=== PATIENT | male | born 1960 | race Caucasian/White ===

== ENCOUNTER 2021-03-04 07:26 | Inpatient (IN) | payer BC, OTHER ==
[~2021-03-04] VITALS: Ht 190.5 cm; Wt 123.6 kg
[2021-03-04] MEDS ORDERED: aspirin 81mg tab.chew PO ONE (07:55)
[2021-03-04 08:31] LABS: ALANINE AMINOTRANSFERASE 46 U/L (12-78); ALBUMIN 3.3 G/DL (3.4-5.0); ALBUMIN/GLOBULIN RATIO 0.9 (1.1-1.5); ALKALINE PHOSPHATASE 101 IU/L (46-116); ANION GAP 8 (8-16); ASPARTATE AMINO TRANSFERASE 19 U/L (10-37); BILIRUBIN,TOTAL 0.8 MG/DL (0.1-1.0); BLOOD UREA NITROGEN 19 MG/DL (7-18); BUN/CREATININE RATIO 20.2 (5.4-32.0); CALCIUM 8.8 MG/DL (8.5-10.1); CHLORIDE 103 MMOL/L (99-107); CREATININE 0.94 MG/DL (0.60-1.10); GLUCOSE 278 MG/DL (70-104); POTASSIUM 4.5 MMOL/L (3.5-5.1); SODIUM 137 MMOL/L (135-145); TOTAL CARBON DIOXIDE 25.9 MMOL/L (24-32); eGFR 81 ML/MIN
[2021-03-04 08:45] LABS: MAGNESIUM 1.7 MG/DL (1.5-2.4)
[2021-03-04] MEDS ORDERED: aspirin 325mg tablet PO ONE (08:55)
[2021-03-04] MEDS ORDERED: furosemide 10 MG/1 ML 10ml inj IV ONE (09:15)
[2021-03-04] MEDS ORDERED: hydrALAZINE 20mg/ml inj. IV ONE (09:15)
[2021-03-04 10:39] LABS: BASOPHILS # (AUTO) 0.1 X10'3 (0-0.2); BASOPHILS % (AUTO) 0.9 % (0-1); EOSINOPHILS # (AUTO) 0.2 X10'3 (0-0.9); EOSINOPHILS % (AUTO) 1.6 % (0-6); LYMPHOCYTES # (AUTO) 1.6 X10'3 (1.1-4.8); LYMPHOCYTES % (AUTO) 16.8 % (21-51); MEAN PLATELET VOLUME 8.5 FL (7.4-10.4); MONOCYTES # (AUTO) 0.6 X10'3 (0-0.9); MONOCYTES % (AUTO) 6.5 % (2-12); NEUTROPHILS # (AUTO) 7.2 X10'3 (1.8-7.7); NEUTROPHILS % (AUTO) 74.2 % (42-75); PLATELET COUNT 267 X10'3 (140-440); WHITE BLOOD COUNT 9.7 X10'3 (4.5-11.0)
[2021-03-04 10:40] LABS: HEMATOCRIT 41.4 % (42.0-52.0); HEMOGLOBIN 13.2 g/dl (14.0-17.9); MEAN CORPUSCULAR HEMOGLOBIN 20.2 PG (27.0-31.0); MEAN CORPUSCULAR HGB CONC 31.9 g/dL (33.0-36.5); MEAN CORPUSCULAR VOLUME 63.3 FL (78-98); RED BLOOD COUNT 6.54 X10'6 (4.70-6.10); RED CELL DISTRIBUTION WIDTH 19.5 % (11.5-14.5)
[2021-03-04 10:56] LABS: ANISOCYTOSIS 3+; PLATELET ESTIMATE NORMAL
[2021-03-04 10:57] LABS: ELLIPTOCYTES 1+; MICROCYTOSIS 1+
[2021-03-04 10:59] LABS: LARGE PLATELETS MODERATE
[2021-03-04 11:00] LABS: POLYCHROMASIA 2+; TEAR DROP CELLS 1+
[2021-03-04] MEDS ORDERED: METF-438 PO (11:08)
[2021-03-04] MEDS ORDERED: AMLO10TA13 PO (11:08)
[2021-03-04] MEDS ORDERED: RISA150P SQ (11:08)
[2021-03-04] MEDS ORDERED: FENO160T PO (11:08)
[2021-03-04] MEDS ORDERED: ICOS1CAP PO (11:08)
[2021-03-04] MEDS ORDERED: EMPA25TA PO (11:08)
[2021-03-04 11:12] LABS: SPHEROCYTES FEW
[2021-03-04] MEDS ORDERED: magnesium Cl slow-release 64mg tablet PO PRN (12:55)
[2021-03-04] MEDS ORDERED: magnesium 4gm in 100ml NS 100 ML IV PRN (12:55)
[2021-03-04] MEDS ORDERED: morphine 2 MG/ML inj. syringe IV PRN ×2 (12:55)
[2021-03-04] MEDS ORDERED: potassium CL 10mEq/100ml bag 100 ML IV PRN (12:55)
[2021-03-04] MEDS ORDERED: potassium Cl 20 mEq SR tablet PO PRN ×2 (12:55)
[2021-03-04] MEDS ORDERED: magnesium hydroxide 30ml (MOM) UD suspension PO PRN (12:55)
[2021-03-04] MEDS ORDERED: mag hydrox/Alum hydrox/simeth 30ml oral suspension PO PRN (12:55)
[2021-03-04] MEDS ORDERED: ondansetron/PF 4mg/2ml inj IV PRN (12:55)
[2021-03-04] MEDS ORDERED: magnesium 2GM in 50ml NS 50 ML IV PRN (12:55)
[2021-03-04 14:17] LABS: MAGNESIUM 1.8 MG/DL (1.5-2.4); POTASSIUM 3.8 MMOL/L (3.5-5.1)
[2021-03-04] MEDS ORDERED: metoprolol tartrate 1mg/ml inj IV PRN (14:35)
[2021-03-04] MEDS ORDERED: nitroGLYCERIN 0.4mg SUBLingual tab SL PRN (14:35)
[2021-03-04] MEDS ORDERED: aminophylline 250mg/10ml inj. IV PRN (14:35)
[2021-03-04] MEDS ORDERED: regadenoson 0.4mg/5ml syringe IV ONE (14:35)
[2021-03-04] MEDS: acetaminophen 325mg tablet PO PRN (18:57)
--- NOTE | 2021-03-04 18:57 | NUR ---
Patient sitting up in chair and reports it helps his breathing. He complains of headache and tylenol is provided. Call alvarado given, lights dimmed, and glass sliders closed to help with noise. He is updated on POC.
[2021-03-04] MEDS: K and/or MAG REPLACEMENT MC SCH (20:00)
[2021-03-04] MEDS ORDERED: ibuprofen 200mg tablet PO ONE (20:00)
[2021-03-04] MEDS: docusate sod 100mg capsule PO SCH (20:15)
[2021-03-04] MEDS: furosemide 40mg/4ml inj IV SCH (20:15)
[2021-03-04 22:00] VITALS: BP 166/111
[2021-03-05] VITALS (12 sets, daily range): BP systolic 124–172; BP diastolic 71–110
--- NOTE | 2021-03-05 06:43 | NUR ---
Problems reprioritized. Patient report given, questions answered & plan of care reviewed with QUAN Villanueva.
[2021-03-05 06:57] LABS: BASOPHILS # (AUTO) 0.1 X10'3 (0-0.2); BASOPHILS % (AUTO) 0.7 % (0-1); EOSINOPHILS # (AUTO) 0.2 X10'3 (0-0.9); EOSINOPHILS % (AUTO) 1.8 % (0-6); LYMPHOCYTES # (AUTO) 1.5 X10'3 (1.1-4.8); LYMPHOCYTES % (AUTO) 17.5 % (21-51); MEAN PLATELET VOLUME 8.6 FL (7.4-10.4); MONOCYTES # (AUTO) 0.5 X10'3 (0-0.9); MONOCYTES % (AUTO) 5.4 % (2-12); NEUTROPHILS # (AUTO) 6.4 X10'3 (1.8-7.7); NEUTROPHILS % (AUTO) 74.6 % (42-75); PLATELET COUNT 241 X10'3 (140-440); RED BLOOD COUNT 6.38 X10'6 (4.70-6.10); RED CELL DISTRIBUTION WIDTH 19.5 % (11.5-14.5); WHITE BLOOD COUNT 8.6 X10'3 (4.5-11.0)
[2021-03-05 07:17] LABS: HEMATOCRIT 40.2 % (42.0-52.0); HEMOGLOBIN 12.8 g/dl (14.0-17.9); MEAN CORPUSCULAR HEMOGLOBIN 20.2 PG (27.0-31.0); MEAN CORPUSCULAR HGB CONC 31.9 g/dL (33.0-36.5); MEAN CORPUSCULAR VOLUME 63.4 FL (78-98)
[2021-03-05 07:29] LABS: ALBUMIN 3.1 G/DL (3.4-5.0); ANION GAP 8 (8-16); BLOOD UREA NITROGEN 24 MG/DL (7-18); BUN/CREATININE RATIO 24.2 (5.4-32.0); CALCIUM 8.2 MG/DL (8.5-10.1); CHLORIDE 103 MMOL/L (99-107); CREATININE 0.99 MG/DL (0.60-1.10); GLUCOSE 234 MG/DL (70-104); MAGNESIUM 1.9 MG/DL (1.5-2.4); POTASSIUM 4.2 MMOL/L (3.5-5.1); SODIUM 139 MMOL/L (135-145); TOTAL CARBON DIOXIDE 28.2 MMOL/L (24-32); eGFR 76 ML/MIN
[2021-03-05] MEDS: furosemide 40mg/4ml inj IV SCH ×2 (07:37→20:54)
[2021-03-05 07:48] LABS: ANISOCYTOSIS 2+; MICROCYTOSIS 2+; PLATELET ESTIMATE NORMAL; POLYCHROMASIA FEW
[2021-03-05 07:49] LABS: ELLIPTOCYTES FEW; LARGE PLATELETS MODERATE
[2021-03-05] MEDS: K and/or MAG REPLACEMENT MC SCH ×2 (08:00→20:00)
[2021-03-05] MEDS: docusate sod 100mg capsule PO SCH ×2 (08:00→20:54)
[2021-03-05] MEDS: enoxaparin 40mg/0.4ml syringe SUBCUT SCH (08:00)
[2021-03-05] MEDS ORDERED: regadenoson 0.4mg/5ml syringe IV ONE (09:10)
--- NOTE | 2021-03-05 12:00 | NUR ---
Dr. Allan states okay for patient to eat
[2021-03-05] MEDS ORDERED: dextrose ORAL solution 15 GM/59 ML bottle PO PRN ×2 (13:40)
[2021-03-05] MEDS ORDERED: glucagon, human recombinant 1mg kit SUBCUT PRN (13:40)
[2021-03-05] MEDS ORDERED: dextrose 50%-water 50ml dispensing syringe IV PRN ×2 (13:40)
[2021-03-05] MEDS: amLODIPine 5mg tablet PO SCH (13:59)
[2021-03-05] MEDS: fenofibrate 145mg tablet PO SCH (14:02)
[2021-03-05] MEDS: insulin Lispro (HumaLOG) vial - multi-dose SQ SCH (14:06)
--- NOTE | 2021-03-05 18:16 | NUR ---
Problems reprioritized. Patient report given, questions answered & plan of care reviewed with Iris GLASS.
[2021-03-05] MEDS: ICOSAPENT ETHYL 1 GM PO SCH (20:00)
[2021-03-05] MEDS ORDERED: insulin glargine (Lantus) pen - multi-dose SQ SCH (21:00)
[2021-03-05] MEDS: acetaminophen 325mg tablet PO PRN (21:48)
[2021-03-06 02:00] VITALS: BP 136/79
[2021-03-06 06:00] VITALS: BP 148/82
--- NOTE | 2021-03-06 06:40 | NUR ---
Problems reprioritized. Patient report given, questions answered & plan of care reviewed with Gabriela GLASS .
--- NOTE | 2021-03-06 06:51 | NUR ---
Patient in room PCU 3015. I have received report from Areli GLASS and had the opportunity to ask questions and assume patient care. Pt. safe and stable at time of change of shift.
[2021-03-06 07:44] LABS: BASOPHILS # (AUTO) 0.1 X10'3 (0-0.2); BASOPHILS % (AUTO) 0.9 % (0-1); EOSINOPHILS # (AUTO) 0.2 X10'3 (0-0.9); EOSINOPHILS % (AUTO) 1.9 % (0-6); LYMPHOCYTES # (AUTO) 1.8 X10'3 (1.1-4.8); LYMPHOCYTES % (AUTO) 21.1 % (21-51); MEAN PLATELET VOLUME 8.5 FL (7.4-10.4); MONOCYTES # (AUTO) 0.6 X10'3 (0-0.9); MONOCYTES % (AUTO) 6.6 % (2-12); NEUTROPHILS # (AUTO) 5.9 X10'3 (1.8-7.7); NEUTROPHILS % (AUTO) 69.5 % (42-75); PLATELET COUNT 242 X10'3 (140-440); RED BLOOD COUNT 6.42 X10'6 (4.70-6.10); RED CELL DISTRIBUTION WIDTH 19.7 % (11.5-14.5); WHITE BLOOD COUNT 8.5 X10'3 (4.5-11.0)
[2021-03-06 07:55] LABS: ANION GAP 6 (8-16); BLOOD UREA NITROGEN 19 MG/DL (7-18); BUN/CREATININE RATIO 20.9 (5.4-32.0); CHLORIDE 104 MMOL/L (99-107); CREATININE 0.91 MG/DL (0.60-1.10); GLUCOSE 171 MG/DL (70-104); POTASSIUM 3.9 MMOL/L (3.5-5.1); SODIUM 139 MMOL/L (135-145); TOTAL CARBON DIOXIDE 28.7 MMOL/L (24-32); eGFR 84 ML/MIN
[2021-03-06] MEDS: ICOSAPENT ETHYL 1 GM PO SCH (08:00)
[2021-03-06] MEDS: K and/or MAG REPLACEMENT MC SCH (08:00)
[2021-03-06 08:27] LABS: HEMATOCRIT 41.1 % (42.0-52.0); HEMOGLOBIN 13.3 g/dl (14.0-17.9); MEAN CORPUSCULAR HEMOGLOBIN 20.3 PG (27.0-31.0); MEAN CORPUSCULAR HGB CONC 32.1 g/dL (33.0-36.5); MEAN CORPUSCULAR VOLUME 63.1 FL (78-98)
[2021-03-06] MEDS: amLODIPine 5mg tablet PO SCH ×2 (08:35→08:38)
[2021-03-06] MEDS: fenofibrate 145mg tablet PO SCH (08:36)
[2021-03-06 08:38] VITALS: BP_SYST 125
[2021-03-06] MEDS: enoxaparin 40mg/0.4ml syringe SUBCUT SCH (08:38)
[2021-03-06] MEDS: furosemide 40mg/4ml inj IV SCH (08:39)
[2021-03-06] MEDS: docusate sod 100mg capsule PO SCH (08:39)
[2021-03-06] MEDS: insulin Lispro (HumaLOG) vial - multi-dose SQ SCH (08:52)
--- NOTE | 2021-03-06 08:56 | NUR ---
Home medications Pt. informed we do not carry his home dose of jardiance and vascepa and for someone to bring his dose in. Latasha U
[2021-03-06 09:49] LABS: ANISOCYTOSIS 2+; MICROCYTOSIS 2+; PLATELET ESTIMATE NORMAL
[2021-03-06 09:50] LABS: GIANT PLATELET FEW
[2021-03-06] MEDS ORDERED: LISI5TAB22 PO (10:49)
[2021-03-06] MEDS ORDERED: ASPI81TA52 PO (10:49)
[2021-03-06] MEDS ORDERED: METO-395 PO (10:49)
[2021-03-06] MEDS ORDERED: FURO40TA4 PO (10:49)
[2021-03-06] MEDS ORDERED: ATOR20TA PO (10:49)
[2021-03-06] MEDS ORDERED: POTA-207 PO (10:49)
--- NOTE | 2021-03-06 11:29 | NUR ---
Discharge Per Dr. Allan, pt. ready for discharge; Pt. received discharge instructions with no further questions; Pt. IV removed with catheter intact; Pt. tele box cleaned and returned to [facility]
[2021-05-31] MEDS ORDERED: [UNRECOGNIZED DRUG - OTHER] SQ SCH (08:00)
== END 2021-03-06 11:32 | disposition home or self-care (01) | DRG 291 ==
LOC: ER 07:27 → ED HOLD 12:56 → PCU 3S 21:45
PROVIDERS: ADMIT Family Medicine; ATTEND Family Medicine
PROC: 4A02XM4 Measurement of Cardiac Total Activity, External Approach (ICD-10-PCS; principal; 2021-03-05)
PROC: 3E073KZ Introduction of Other Diagnostic Substance into Coronary Artery, Percutaneous Approach (ICD-10-PCS; 2021-03-05)
DX: I11.0 Hypertensive heart disease with heart failure (principal); I50.33 Acute on chronic diastolic (congestive) heart failure; E11.9 Type 2 diabetes mellitus without complications; E78.5 Hyperlipidemia, unspecified; Z20.822 Contact with and (suspected) exposure to COVID-19; I08.1 Rheumatic disorders of both mitral and tricuspid valves; I25.5 Ischemic cardiomyopathy; I25.118 Atherosclerotic heart disease of native coronary artery with other forms of angina pectoris; I25.2 Old myocardial infarction; Z95.1 Presence of aortocoronary bypass graft; Z95.5 Presence of coronary angioplasty implant and graft
CPT/HCPCS: 36415; 71045; 78452; 80048; 80053; 82948; 83735; 83880; 84132; 84145; 84484; 85008; 85025; 87081; 87635; 93005; 93017; 93306; 99285; A9500; C9803; G0378; J0360; J1650; J1815; J1940

== ENCOUNTER 2021-06-12 12:38 | Outpatient (CLI) | payer BC ==
[~2021-06-12 12:38] MED LIST: ATOR20TA PO; EMPA25TA PO; FENO160T PO; ICOS1CAP PO; LISI5TAB22 PO; METF-438 PO; METO-395 PO; RISA150P SQ
== END 2021-06-12 23:59 | disposition home or self-care (01) ==
LOC: CARD DIAG 12:38
PROVIDERS: ATTEND Internal Medicine Interventional Cardiology
DX: I08.8 Other rheumatic multiple valve diseases (principal); I25.10 Atherosclerotic heart disease of native coronary artery without angina pectoris; I50.22 Chronic systolic (congestive) heart failure; I10 Essential (primary) hypertension; E78.5 Hyperlipidemia, unspecified
CPT/HCPCS: 93306

== ENCOUNTER 2021-06-12 12:46 | Outpatient (CLI) | payer BC ==
[2021-06-12 14:21] LABS: BASOPHILS # (AUTO) 0.1 X10'3 (0-0.2); BASOPHILS % (AUTO) 1.2 % (0-1); EOSINOPHILS # (AUTO) 0.2 X10'3 (0-0.9); LYMPHOCYTES # (AUTO) 1.9 X10'3 (1.1-4.8); LYMPHOCYTES % (AUTO) 23.3 % (21-51); MEAN PLATELET VOLUME 8.4 FL (7.4-10.4); MONOCYTES # (AUTO) 0.7 X10'3 (0-0.9); MONOCYTES % (AUTO) 7.9 % (2-12); NEUTROPHILS # (AUTO) 5.4 X10'3 (1.8-7.7); NEUTROPHILS % (AUTO) 65.6 % (42-75); PLATELET COUNT 282 X10'3 (140-440); WHITE BLOOD COUNT 8.3 X10'3 (4.5-11.0)
[2021-06-12 14:41] LABS: CHOL/HDL RATIO 5.7 (0.00-4.99); CHOLESTEROL 164 MG/DL (0-200); HDL CHOLESTEROL 29 MG/DL (35-60); LDL CHOLESTEROL 85 MG/DL (50-100); TOTAL CARBON DIOXIDE 26.6 MMOL/L (24-32); TRIGLYCERIDES 768 MG/DL (20-135)
[2021-06-12 15:07] LABS: HEMATOCRIT 52.4 % (42.0-52.0); HEMOGLOBIN 16.5 g/dl (14.0-17.9); MEAN CORPUSCULAR HEMOGLOBIN 19.8 PG (27.0-31.0); MEAN CORPUSCULAR HGB CONC 31.5 g/dL (33.0-36.5); MEAN CORPUSCULAR VOLUME 62.8 FL (78-98); RED BLOOD COUNT 8.34 X10'6 (4.70-6.10); RED CELL DISTRIBUTION WIDTH 19.7 % (11.5-14.5)
[2021-06-12 15:36] LABS: ALANINE AMINOTRANSFERASE 25 U/L (12-78); ASPARTATE AMINO TRANSFERASE 13 U/L (10-37)
[2021-06-12 15:38] LABS: ALBUMIN 3.5 G/DL (3.4-5.0); ALKALINE PHOSPHATASE 92 IU/L (46-116); ANION GAP 10 (8-16); BILIRUBIN,TOTAL 0.6 MG/DL (0.1-1.0); BLOOD UREA NITROGEN 20 MG/DL (7-18); BUN/CREATININE RATIO 17.4 (5.4-32.0); CALCIUM 8.5 MG/DL (8.5-10.1); CHLORIDE 104 MMOL/L (99-107); CREATININE 1.15 MG/DL (0.60-1.10); SODIUM 141 MMOL/L (135-145); TOTAL PROTEIN 7.1 G/DL (6.4-8.2); eGFR 64 ML/MIN
[2021-06-12 15:40] LABS: GLUCOSE 147 MG/DL (70-104); POTASSIUM 4.8 MMOL/L (3.5-5.1)
[2021-06-12 15:46] LABS: ANISOCYTOSIS 3+; MICROCYTOSIS 2+; PLATELET ESTIMATE NORMAL; POLYCHROMASIA FEW
[2021-06-12 16:11] LABS: FERRITIN 10 NG/ML (26-388)
== END 2021-06-12 23:59 | disposition home or self-care (01) ==
LOC: LAB 12:46
PROVIDERS: ATTEND Nurse Practitioner
DX: I11.0 Hypertensive heart disease with heart failure (principal); I50.9 Heart failure, unspecified; E11.9 Type 2 diabetes mellitus without complications; E66.9 Obesity, unspecified; Z68.33 Body mass index [BMI] 33.0-33.9, adult
CPT/HCPCS: 36415; 80053; 80061; 82728; 84443; 85008; 85025

== ENCOUNTER 2022-05-03 12:41 | Outpatient (CLI) | payer BC | END 2022-05-03 23:59 | disposition home or self-care (01) | LOC: RAD 12:41 | PROVIDERS: ATTEND Internal Medicine Interventional Cardiology | DX: I08.8 Other rheumatic multiple valve diseases (principal); I50.22 Chronic systolic (congestive) heart failure | CPT/HCPCS: 93306 ==

== ENCOUNTER → 2023-07-04 | Outpatient (CLI) | payer BC ==
[2023-07-04 10:44] LABS: ALANINE AMINOTRANSFERASE 29 U/L (12-78); ALBUMIN 3.8 G/DL (3.4-5.0); ALKALINE PHOSPHATASE 54 IU/L (46-116); ANION GAP 9 (8-16); ASPARTATE AMINO TRANSFERASE 20 U/L (10-37); BASOPHILS # (AUTO) 0.1 X10'3 (0-0.2); BASOPHILS % (AUTO) 0.8 % (0-1); BILIRUBIN,TOTAL 0.8 MG/DL (0.1-1.0); BLOOD UREA NITROGEN 31 MG/DL (7-18); BUN/CREATININE RATIO 24.8 (10.0-20.0); CALCIUM 8.9 MG/DL (8.5-10.1); CHLORIDE 105 MMOL/L (99-107); CHOL/HDL RATIO 2.7 (0.00-4.99); CHOLESTEROL 96 MG/DL (0-200); CREATININE 1.25 MG/DL (0.60-1.10); EOSINOPHILS # (AUTO) 0.2 X10'3 (0-0.9); EOSINOPHILS % (AUTO) 2.6 % (0-6); GLUCOSE 116 MG/DL (70-104); HDL CHOLESTEROL 35 MG/DL (35-60); LDL CHOLESTEROL 37 MG/DL (50-100); LYMPHOCYTES # (AUTO) 1.5 X10'3 (1.1-4.8); LYMPHOCYTES % (AUTO) 20.5 % (21-51); MEAN PLATELET VOLUME 8.4 FL (7.4-10.4); MONOCYTES # (AUTO) 0.5 X10'3 (0-0.9); MONOCYTES % (AUTO) 6.7 % (2-12); NEUTROPHILS # (AUTO) 5.2 X10'3 (1.8-7.7); NEUTROPHILS % (AUTO) 69.4 % (42-75); PLATELET COUNT 289 X10'3 (140-440); POTASSIUM 3.9 MMOL/L (3.5-5.1); SODIUM 141 MMOL/L (135-145); THYROID STIMULATING HORMONE 1.19 ulU/ml (0.34-4.50); TOTAL CARBON DIOXIDE 26.6 MMOL/L (24-32); TOTAL PROTEIN 7.8 G/DL (6.4-8.2); TRIGLYCERIDES 152 MG/DL (20-135); WHITE BLOOD COUNT 7.5 X10'3 (4.5-11.0); eGFR 58 ML/MIN
[2023-07-04 10:49] LABS: BILIRUBIN,URINE NEGATIVE (Neg); CLARITY,URINE CLEAR (Clear); COLOR,URINE YELLOW (Yellow); GLUCOSE, URINE >=1000 mg/dl (Neg); KETONES,URINE NEGATIVE (Neg); LEUKOCYTE ESTERASE ,URINE NEGATIVE (Neg); NITRITES, URINE NEGATIVE (Neg); OCCULT BLOOD,URINE NEGATIVE (Neg); PH,URINE 5.5 (4.8-8.0); PROTEIN,URINE NEGATIVE (Neg); UROBILINOGEN,URINE 0.2 E.U/dL (0.2-1.0)
[2023-07-04 10:54] LABS: UA COLLECTION TYPE VOIDED
[2023-07-04 10:55] LABS: BACTERIA,URINE FEW /HPF (Neg); RBC,URINE 0-2 /HPF (0-2); SQUAMOUS EPITHELIAL CELL,UR FEW /LPF (FEW); WBC,URINE 0-4 /HPF (0-4)
[2023-07-04 11:19] LABS: HEMATOCRIT 48.8 % (42.0-52.0); HEMOGLOBIN 15.6 g/dl (14.0-17.9); MEAN CORPUSCULAR HEMOGLOBIN 20.9 PG (27.0-31.0); MEAN CORPUSCULAR VOLUME 65.5 FL (78-98); RED BLOOD COUNT 7.44 X10'6 (4.70-6.10); RED CELL DISTRIBUTION WIDTH 20.6 % (11.5-14.5)
[2023-07-04 12:06] LABS: ANISOCYTOSIS 3+; MICROCYTOSIS 2+; PLATELET ESTIMATE NORMAL
[2023-07-04 12:07] LABS: HYPOCHROMASIA 1+; POIKILOCYTOSIS FEW; STOMATOCYTES FEW
== END | disposition home or self-care (01) ==
LOC: LAB 09:00
PROVIDERS: ATTEND Internal Medicine Endocrinology, Diabetes & Metabolism
DX: Z00.01 Encounter for general adult medical examination with abnormal findings (principal); E11.9 Type 2 diabetes mellitus without complications; R79.89 Other specified abnormal findings of blood chemistry; E55.9 Vitamin D deficiency, unspecified; E78.5 Hyperlipidemia, unspecified
CPT/HCPCS: 36415; 80053; 80061; 81001; 82043; 82306; 82570; 83036; 84443; 85008; 85025